=== PATIENT | male | born 1930 | race Caucasian/White ===

== ENCOUNTER → 2016-07-11 | Outpatient (CLI) | payer MEDICARE, BC ==
[~2016-07-11] MED LIST: ALBUTEROL2.5 MG/0.5 INH; BREO ELLIPTA 11 EACH; DELTASONE10 MG PO; ELOCON45 GM TOP; EYLEA2 MG/0.05; LASIX20 MG PO; LEVAQUIN500 MG PO; MEDROL4 M1; MIRAPEX0.25 MG PO; MYCOSTATIN CREA30 GM TOP; MYCOSTATIN(NYST15 GM TOP; NASONEX NASAL S17 GM NOSE; PRINIVIL (ZESTRI5 MG PO; PROBIOTIC1 EAC1 PO; PROVENTIL OR V6.7 GM INH; SPIRIVA HANDIHA1 KIT; SYMBICORT 16010.2 GM INH; TENORMIN50 MG PO; TRIACET 0.1% 8080 GM TOP; TYLENOL EXTRA500 MG PO; VITAMIN B-121000 MCG PO; XARELTO20 MG PO; ZOCOR40 MG PO
== END | disposition disaster alternative care site (69) ==
LOC: GAMB 02:53
DX: J44.1 Chronic obstructive pulmonary disease with (acute) exacerbation (principal); R06.02 Shortness of breath; M25.551 Pain in right hip; Z79.899 Other long term (current) drug therapy
CPT/HCPCS: A0422; A0425; A0427; J3010